=== PATIENT | male | born 1960 | race Hispanic/Latino ===

== ENCOUNTER 2018-08-18 16:55 | Emergency (ER) | payer OTHER ==
[~2018-08-18] VITALS: Ht 170.2 cm; Wt 192.8 kg
--- OUTSIDE RECORDS SUMMARY | 2018-08-18 16:57 | XMS REPORT ---
Author Author [facility] Address Unknown Phone Unavailable Care Team Providers Care Medical Claims Manager Name Role Phone Unavailable Unavailable Payers Payer Name Policy Type Policy Number Effective Date Expiration Date Problems This patient has no known problems. Allergies, Adverse Reactions, Alerts Allergy Name Allergy Type Status Severity Reaction(s) Onset Date Inactive Date Treating Clinician Comments No Known Allergies DA Active U 2015-04-20 00:00:00 Medications This patient has no known medications.
[2018-08-18 18:16] LABS: BASOPHILS % 0.5 % (0.0-1.0); EOSINOPHILS # (AUTO) 0.2 (0.0-0.4); EOSINOPHILS % 3.9 % (0.0-6.0); HEMATOCRIT 24.8 % (38.2-49.6); HEMOGLOBIN 7.8 g/dL (14.0-18.0); LYMPHOCYTES # (AUTO) 0.8 (1.0-3.2); LYMPHOCYTES % 21.2 % (18.0-39.1); MEAN CORPUSCULAR HEMOGLOBIN 24.5 pg (28-32); MEAN CORPUSCULAR HGB CONC 31.5 g/dL (31-35); MEAN CORPUSCULAR VOLUME 77.7 fL (81-99); MONOCYTES # (AUTO) 0.4 (0.2-0.8); MONOCYTES % 9.7 % (4.4-11.3); NEUTROPHILS # (AUTO) 2.5 (2.1-6.9); NEUTROPHILS % 64.4 % (38.7-80.0); RED BLOOD COUNT 3.19 x10e6/uL (4.3-5.7); RED CELL DISTRIBUTION WIDTH 18.4 % (11.7-14.4)
[2018-08-18 18:18] LABS: PLATELET COUNT 52 x10e3/uL (140-360)
[2018-08-18 20:53] VITALS: BP 112/66
== END 2018-08-18 21:27 | disposition home or self-care (01) ==
LOC: ER 16:55
DX: D63.1 Anemia in chronic kidney disease (principal)
CPT/HCPCS: 36415; 85025; 93005; 99283

== ENCOUNTER → 2018-12-30 | Day surgery (SDC) | payer OTHER ==
[~2018-12-30] MED LIST: FUROSEMIDE40 MG PO; GLIMEPIRIDE2 MG PO; GLYCOPYRROLATE INJ 1MG/ 5 ML SYR ONE; KETAMINE HCL INJ 50 MG/ML 10 ML VIAL ONE; METFORMIN HCL1000 MG PO; MIDAZOLAM HCL 2 MG/2 ML VIAL ONE; PROPOFOL IV EMULSION 10 MG/ML 50 ML VIAL ONE
[2018-12-30 10:53] VITALS: BP 110/71
== END | disposition home or self-care (01) ==
LOC: OR 07:37
PROVIDERS: ATTEND Internal Medicine Gastroenterology
DX: D50.0 Iron deficiency anemia secondary to blood loss (chronic) (principal); D12.2 Benign neoplasm of ascending colon; K29.50 Unspecified chronic gastritis without bleeding; I85.00 Esophageal varices without bleeding; K55.20 Angiodysplasia of colon without hemorrhage; B96.81 Helicobacter pylori [H. pylori] as the cause of diseases classified elsewhere; K64.8 Other hemorrhoids; K76.0 Fatty (change of) liver, not elsewhere classified; E11.9 Type 2 diabetes mellitus without complications; F17.210 Nicotine dependence, cigarettes, uncomplicated; Z01.810 Encounter for preprocedural cardiovascular examination; Z79.84 Long term (current) use of oral hypoglycemic drugs
CPT/HCPCS: 36415; 43239; 45385; 82948; 93005; J2250